=== PATIENT | male | born 1990 | race Caucasian/White ===

== ENCOUNTER 2022-04-20 02:07 | Emergency (ER) | payer SELFPAY ==
[2022-04-20] MEDS ORDERED: Ondansetron 4 MG/2 ML SDV IVPUSH ONE (02:31)
[2022-04-20] MEDS ORDERED: Lactated Ringers 1,000 ML IV ONE (02:31)
[2022-04-20] MEDS ORDERED: Potassium Chloride 20 MEQ Tab.ER PO ONE (03:49)
[2022-04-20] MEDS ORDERED: Ondansetron 4 MG Tab.DIS PO ONE (04:02)
[2022-04-20] MEDS ORDERED: Sucralfate Suspension 1 GM/10 ML Cup PO ONE (04:04)
[2022-04-20] MEDS ORDERED: Potassium Chloride 20 MEQ Tab.ER ONE (05:08)
== END 2022-04-20 05:20 | disposition home or self-care (01) ==
LOC: JD.ED 02:07
DX: R11.2 Nausea with vomiting, unspecified (principal); R42 Dizziness and giddiness
CPT/HCPCS: 36415; 80053; 83690; 83735; 85025; 96361; 96374; 99284; A9270; J2405; J7120; 99283

== ENCOUNTER 2022-06-19 10:26 | Emergency (ER) | payer SELFPAY ==
[2022-06-19] MEDS ORDERED: Sodium Chloride 0.9% 1,000 ML IV SCH (11:15)
[2022-06-19] MEDS ORDERED: Sodium Chloride 0.9% 10 ML Syringe FLUSH ONE (11:17)
[2022-06-19] MEDS ORDERED: Iopamidol 755 Mg/ML 100 ML Bottle IVPUSH ONE (11:17)
[2022-06-19 11:29] LABS: ESTIMATED GFR 84 mL/min (>60)
[2022-06-19] MEDS ORDERED: Sodium Chloride 0.9% 100 ML IV SCH (11:30)
[2022-06-19 12:30] LABS: CORONAVIRUS COVID-19 NAA NEGATIVE (NEGATIVE)
== END 2022-06-19 13:05 | disposition home or self-care (01) ==
LOC: JD.ED 10:26
DX: F10.129 Alcohol abuse with intoxication, unspecified (principal); Z72.0 Tobacco use; Z20.822 Contact with and (suspected) exposure to COVID-19; Y90.1 Blood alcohol level of 20-39 mg/100 ml
CPT/HCPCS: 0241U; 36415; 36600; 70450; 70496; 70498; 80053; 80143; 80179; 80306; 80307; 82803; 82947; 84484; 85025; 85379; 85610; 85730; 93005; 96360; 99284; J3490; J7030; Q9967; 93010

== ENCOUNTER 2022-07-03 07:17 | Emergency (ER) | payer SELFPAY ==
[2022-07-03] MEDS ORDERED: Sodium Chloride 0.9% 1,000 ML IV ONE (08:06)
[2022-07-03] MEDS ORDERED: Iopamidol 755 Mg/ML 100 ML Bottle IVPUSH ONE (08:35)
[2022-07-03] MEDS ORDERED: Sodium Chloride 0.9% 10 ML Syringe FLUSH ONE (08:35)
[2022-07-03 08:59] LABS: ESTIMATED GFR 93 mL/min (>60)
[2022-07-03 09:02] LABS: ACETAMINOPHEN 0 ug/mL (10-30)
[2022-07-03] MEDS ORDERED: Famotidine 20 MG Tab PO STA (12:24)
== END 2022-07-03 12:56 | disposition home or self-care (01) ==
LOC: JD.ED 07:17
DX: F10.229 Alcohol dependence with intoxication, unspecified (principal); K83.1 Obstruction of bile duct; R74.01 Elevation of levels of liver transaminase levels; Z72.0 Tobacco use; Z20.822 Contact with and (suspected) exposure to COVID-19; Y90.0 Blood alcohol level of less than 20 mg/100 ml
CPT/HCPCS: 36415; 71046; 74177; 80053; 80143; 80179; 80306; 80307; 81001; 83605; 83690; 83735; 84443; 84484; 85007; 85027; 85379; 86140; 86308; 87040; 87635; 93005; 96360; 99284; A9270; J3490; J7030; Q9967; 93010; U0002

== ENCOUNTER 2022-07-15 08:06 | Emergency (ER) | payer SELFPAY ==
[2022-07-15] MEDS ORDERED: Famotidine 20 MG/2 ML SDV IVPUSH STA (08:35)
[2022-07-15] MEDS ORDERED: Ondansetron 4 MG/2 ML SDV IVPUSH ONE (08:35)
[2022-07-15] MEDS ORDERED: Sodium Chloride 0.9% 1,000 ML IV ONE (08:35)
[2022-07-15 10:18] LABS: CORONAVIRUS COVID-19 NAA NEGATIVE (NEGATIVE)
[2022-07-15] MEDS ORDERED: LORazepam 2 MG/ML SDV IVPUSH STA (11:11)
== END 2022-07-15 15:48 | disposition home or self-care (01) ==
LOC: JD.ED 08:06
DX: K29.70 Gastritis, unspecified, without bleeding (principal); R74.01 Elevation of levels of liver transaminase levels; F10.20 Alcohol dependence, uncomplicated; F17.210 Nicotine dependence, cigarettes, uncomplicated; Z20.822 Contact with and (suspected) exposure to COVID-19
CPT/HCPCS: 0241U; 36415; 80053; 80143; 80179; 80306; 80307; 83605; 83690; 83735; 85025; 96361; 96374; 96375; 99285; J2060; J2405; J3490; J7030; 99284

== ENCOUNTER 2022-09-06 16:32 | Emergency (ER) | payer SELFPAY | END 2022-09-06 17:43 | disposition home or self-care (01) | LOC: JD.ED 16:32 | DX: F41.0 Panic disorder [episodic paroxysmal anxiety] (principal); H93.19 Tinnitus, unspecified ear; R03.0 Elevated blood-pressure reading, without diagnosis of hypertension; F17.210 Nicotine dependence, cigarettes, uncomplicated | CPT/HCPCS: 99284 ==

== ENCOUNTER 2022-12-11 10:18 | Emergency (ER) | payer SELFPAY ==
[2022-12-11] MEDS: LORazepam 1 MG Tab PO ONE ×2 (11:20→11:38)
[2022-12-11] MEDS: OLANZapine 5 MG Tab PO ONE ×2 (11:20→11:38)
== END 2022-12-11 11:45 | disposition home or self-care (01) ==
LOC: JD.ED 10:18
DX: R44.0 Auditory hallucinations (principal); F41.9 Anxiety disorder, unspecified; Z79.899 Other long term (current) drug therapy
CPT/HCPCS: 99283; 99284; A9270-GY

== ENCOUNTER 2023-02-02 06:50 | Emergency (ER) | payer MEDICAID | END 2023-02-02 07:49 | disposition home or self-care (01) | LOC: JD.ED 06:50 | DX: S61.211A Laceration without foreign body of left index finger without damage to nail, initial encounter (principal); Z79.899 Other long term (current) drug therapy; W26.0XXA Contact with knife, initial encounter | CPT/HCPCS: 99282 ==

== ENCOUNTER 2023-05-05 20:24 | Emergency (ER) | payer SELFPAY | END 2023-05-05 20:34 | LOC: JD.ED 20:24 | DX: F10.129 Alcohol abuse with intoxication, unspecified (principal); Y90.9 Presence of alcohol in blood, level not specified | CPT/HCPCS: 99283; 99284 ==

== ENCOUNTER 2023-12-24 05:06 | Emergency (ER) | payer SELFPAY ==
[2023-12-24 05:41] LABS: BASOPHILS PERCENT AUTO 0.5 % (0.0-1.0); EOSINOPHILS PERCENT AUTO 0.9 % (0.0-6.0); HEMATOCRIT 45.6 % (42.0-52.0); IMMATURE GRAN ABSOLUTE AUTO 0.01 K/mm3 (0.00-0.05); IMMATURE GRAN PERCENT AUTO 0.2 % (0.0-0.4); LYMPHOCYTES ABSOLUTE AUTO 1.6 K/mm3 (1.0-4.8); LYMPHOCYTES PERCENT AUTO 35.3 % (24.0-44.0); MEAN CORPUSCULAR HEMOGLOBIN 32.5 pg (28.0-32.0); MEAN CORPUSCULAR HGB CONC 35.1 g/dl (32.0-36.0); MEAN CORPUSCULAR VOLUME 92.7 fl (83.0-99.0); MEAN PLATELET VOLUME 10.3 fl (9.4-12.4); MONOCYTES ABSOLUTE AUTO 0.5 K/mm3 (0.0-0.8); MONOCYTES PERCENT AUTO 10.9 % (0.0-8.0); NEUTROPHILS ABSOLUTE AUTO 2.3 K/mm3 (1.8-7.7); NEUTROPHILS PERCENT AUTO 52.2 % (41.0-71.0); PLATELET COUNT,PLT 198 K/mm3 (150-400); RED BLOOD CELL COUNT 4.92 M/mm3 (4.52-5.90); WHITE BLOOD CELL COUNT,WBC 4.42 K/mm3 (3.9-11.3)
[2023-12-24] MEDS: LORazepam 2 MG/ML SDV IVPUSH ONE (05:53)
[2023-12-24] MEDS: Metoclopramide 10 MG/2 ML SDV IVPUSH ONE (05:54)
[2023-12-24] MEDS: Dextrose 5%-Lactated Ringers 1,000 ML IV SCH (05:54)
[2023-12-24] MEDS: Thiamine 200 MG/2 ML MDV IVPUSH ONE (05:54)
[2023-12-24 06:26] LABS: PROTHROMBIN TIME 9.3 SECONDS (9.7-12.0)
[2023-12-24 06:27] LABS: PTT,PARTIAL THROMBOPLSTIN TIME 27.2 SECONDS (21.7-31.4)
[2023-12-24 06:37] LABS: ALBUMIN 3.8 g/dl (3.4-5.0); ANION GAP 17.6 (5-15); BILIRUBIN TOTAL 0.2 mg/dL (0.2-1.0); C-REACTIVE PROTEIN 0.6 mg/dL (<0.30); CALCIUM 8.7 mg/dL (8.5-10.1); CREATININE 0.9 mg/dL (0.7-1.3); EST CRCL DRUG DOSING (CG) 126.66 mL/min; INR < 0.93; MAGNESIUM 1.8 mg/dL (1.8-2.4); POTASSIUM,K 3.6 mEq/L (3.5-5.1); PROTEIN TOTAL,TP 7.8 g/dl (6.4-8.2)
[2023-12-24 06:44] LABS: LACTIC ACID 2.5 mmol/L (0.4-2.0)
== END 2023-12-24 07:28 | disposition home or self-care (01) ==
LOC: JD.ED 05:06
DX: F10.120 Alcohol abuse with intoxication, uncomplicated (principal); K04.7 Periapical abscess without sinus; Z79.899 Other long term (current) drug therapy; Y90.8 Blood alcohol level of 240 mg/100 ml or more
CPT/HCPCS: 36415; 80053; 80307; 83605; 83690; 83735; 85025; 85610; 85730; 86140; 96361; 96374; 96375; 99285; J2060; J2765; J3411; J7121

== ENCOUNTER 2023-12-26 08:00 | Emergency (ER) | payer SELFPAY ==
[2023-12-26] MEDS: Sodium Chloride 0.9% 10 ML Syringe FLUSH PRN ×2 (08:40→11:01)
[2023-12-26] MEDS: Ondansetron 4 MG/2 ML SDV IVPUSH ONE (08:40)
[2023-12-26] MEDS: LORazepam 2 MG/ML SDV IVPUSH ONE (08:41)
[2023-12-26 09:04] LABS: BASOPHILS PERCENT AUTO 0.6 % (0.0-1.0); EOSINOPHILS PERCENT AUTO 0.6 % (0.0-6.0); HEMATOCRIT 52.4 % (42.0-52.0); HEMOGLOBIN 18.3 gm/dl (14.0-18.0); IMMATURE GRAN ABSOLUTE AUTO 0.01 K/mm3 (0.00-0.05); IMMATURE GRAN PERCENT AUTO 0.2 % (0.0-0.4); LYMPHOCYTES ABSOLUTE AUTO 1.5 K/mm3 (1.0-4.8); LYMPHOCYTES PERCENT AUTO 32.9 % (24.0-44.0); MEAN CORPUSCULAR HEMOGLOBIN 32.5 pg (28.0-32.0); MEAN CORPUSCULAR HGB CONC 34.9 g/dl (32.0-36.0); MEAN CORPUSCULAR VOLUME 93.1 fl (83.0-99.0); MEAN PLATELET VOLUME 10.5 fl (9.4-12.4); MONOCYTES ABSOLUTE AUTO 0.4 K/mm3 (0.0-0.8); MONOCYTES PERCENT AUTO 8.2 % (0.0-8.0); NEUTROPHILS ABSOLUTE AUTO 2.7 K/mm3 (1.8-7.7); NEUTROPHILS PERCENT AUTO 57.5 % (41.0-71.0); PLATELET COUNT,PLT 206 K/mm3 (150-400); RED BLOOD CELL COUNT 5.63 M/mm3 (4.52-5.90); WHITE BLOOD CELL COUNT,WBC 4.65 K/mm3 (3.9-11.3)
[2023-12-26 09:13] LABS: INR 0.95; PROTHROMBIN TIME 10.1 SECONDS (9.7-12.0)
[2023-12-26 09:20] LABS: A/G RATIO 0.9 (1-2); ALANINE AMINOTRANSFERASE,ALT 206 U/L (16-63); ALBUMIN 4.4 g/dl (3.4-5.0); ALKALINE PHOSPHATASE 112 U/L (46-116); ASPARTATE AMNIOTRANSFERASE,AST 124 U/L (15-37); BILIRUBIN TOTAL 0.4 mg/dL (0.2-1.0); BLOOD UREA NITROGEN,BUN 14 mg/dL (7-18); CALCIUM 9.3 mg/dL (8.5-10.1); CARBON DIOXIDE,CO2 21 mEq/L (21-32); CHLORIDE,CL 97 mEq/L (98-107); ESTIMATED GFR 103 mL/min (>60); GLUCOSE RANDOM 82 mg/dL (70-99); PROTEIN TOTAL,TP 9.1 g/dl (6.4-8.2); SODIUM,NA 139 mEq/L (136-145)
[2023-12-26 09:21] LABS: D-DIMER QUANTITATIVE 1.84 mg/L (0.19-0.50)
[2023-12-26 09:23] LABS: TROPONIN I HIGH SENSITIVITY < 4 pg/mL (<=76)
[2023-12-26] MEDS: Iopamidol 755 Mg/ML 100 ML Bottle IVPUSH ONE (11:01)
[2023-12-26] MEDS: Sodium Chloride 0.9% 100 ML IV SCH (11:01)
[2023-12-26] MEDS: Pantoprazole 40 MG Tab.CR PO ONE (12:05)
== END 2023-12-26 12:13 | disposition home or self-care (01) ==
LOC: JD.ED 08:00
DX: R11.10 Vomiting, unspecified (principal); F10.10 Alcohol abuse, uncomplicated; R74.01 Elevation of levels of liver transaminase levels
CPT/HCPCS: 36415; 71045; 71045-26; 71275; 71275-26; 80053; 84484; 85025; 85379; 85610; 93005; 93010; 96374; 96375; 99284; 99285-25; A9270-GY; J2060; J2405; J3490; Q9967

== ENCOUNTER 2023-12-26 18:35 | Emergency (ER) | payer SELFPAY ==
[2023-12-26] MEDS: Dextrose 5%-Lactated Ringers 1,000 ML IV SCH (20:06)
[2023-12-26] MEDS: diphenhydrAMINE 50 MG/ML SDV IVPUSH ONE (20:08)
[2023-12-26] MEDS: Metoclopramide 10 MG/2 ML SDV IVPUSH ONE (20:09)
[2023-12-26 20:11] LABS: BASOPHILS PERCENT AUTO 0.4 % (0.0-1.0); EOSINOPHILS ABSOLUTE AUTO 0.1 K/mm3 (0.0-0.4); HEMATOCRIT 48.4 % (42.0-52.0); HEMOGLOBIN 17.1 gm/dl (14.0-18.0); IMMATURE GRAN ABSOLUTE AUTO 0.01 K/mm3 (0.00-0.05); IMMATURE GRAN PERCENT AUTO 0.1 % (0.0-0.4); LYMPHOCYTES ABSOLUTE AUTO 0.7 K/mm3 (1.0-4.8); LYMPHOCYTES PERCENT AUTO 10.6 % (24.0-44.0); MEAN CORPUSCULAR HEMOGLOBIN 32.4 pg (28.0-32.0); MEAN CORPUSCULAR HGB CONC 35.3 g/dl (32.0-36.0); MEAN CORPUSCULAR VOLUME 91.8 fl (83.0-99.0); MEAN PLATELET VOLUME 10.5 fl (9.4-12.4); MONOCYTES ABSOLUTE AUTO 0.5 K/mm3 (0.0-0.8); MONOCYTES PERCENT AUTO 7.6 % (0.0-8.0); NEUTROPHILS ABSOLUTE AUTO 5.4 K/mm3 (1.8-7.7); NEUTROPHILS PERCENT AUTO 79.3 % (41.0-71.0); PLATELET COUNT,PLT 192 K/mm3 (150-400); RED BLOOD CELL COUNT 5.27 M/mm3 (4.52-5.90); WHITE BLOOD CELL COUNT,WBC 6.87 K/mm3 (3.9-11.3)
[2023-12-26 20:29] LABS: ALBUMIN 4.4 g/dl (3.4-5.0); ANION GAP 22.3 (5-15); BILIRUBIN TOTAL 0.9 mg/dL (0.2-1.0); C-REACTIVE PROTEIN 0.93 mg/dL (<0.30); CALCIUM 9.5 mg/dL (8.5-10.1); CREATININE 0.9 mg/dL (0.7-1.3); EST CRCL DRUG DOSING (CG) 126.14 mL/min; MAGNESIUM 1.7 mg/dL (1.8-2.4); POTASSIUM,K 4.3 mEq/L (3.5-5.1); PROTEIN TOTAL,TP 8.8 g/dl (6.4-8.2)
[2023-12-26 20:32] LABS: LACTIC ACID 1.4 mmol/L (0.4-2.0)
[2023-12-26] MEDS: Lactated Ringers 1,000 ML IV SCH (21:22)
[2023-12-26] MEDS: Lactated Ringers 1,000 ML ONE (22:10)
[2023-12-26] MEDS: Ondansetron 4 MG/2 ML SDV IVPUSH ONE (23:31)
== END 2023-12-26 22:38 | disposition home or self-care (01) ==
LOC: JD.ED 18:35
DX: E87.20 Acidosis, unspecified (principal); F10.988 Alcohol use, unspecified with other alcohol-induced disorder; F17.210 Nicotine dependence, cigarettes, uncomplicated; Z79.899 Other long term (current) drug therapy
CPT/HCPCS: 36415; 80053; 80307; 82010; 82947; 83605; 83690; 83735; 85025; 86140; 96361; 96374; 96375; 99284-25; 99285; J1200; J2405; J2765; J7120; J7121